=== PATIENT | male | born 1990 | race American Indian/Alaskan Native ===

== ENCOUNTER 2016-04-08 07:53 | Emergency (ER) | payer OTHER ==
--- NOTE | 2016-04-08 11:12 | Emergency Department Report ---
Chief Complaint: Weakness Stated Complaint: FEELING FAINT Time Seen by Provider: 04/08/16 11:07 - HPI History of Present Illness: Patient here complaining of generalized weakness especially to his lower extremities. He said he woke up this morning he feel drained. Denies nausea vomiting or diarrhea. Reports that he is having lower back pain and it 7 out of 10 constant and achy. Patient was diagnosed with MS over a year ago through [facility]. His neurologist is DR Beckwith at [facility]. Patient is supposed to be on medication but he said he has not taken for over a year. Patient reports that he was supposed to go to classes for MS and did not get to go because he cannot get in touch with a person was supposed to schedule him for the class. - ROS Review of Systems: Systems are negative unless stated in HPI above. - Exam Vital Signs: Vital Signs 04/08/16 08:24 Temperature 97.7 F Pulse Rate 92 H Respiratory 17 Rate Blood Pressure 97/52 O2 Sat by Pulse 100 Oximetry Physical Exam: General General: Is a 25-year-old male well-nourished well-developed in no acute distress. CV: S1, S2. Regular rate and rhythm. BP is 97/52. mini-neuro: GCS of 15, alert and oriented 3. Patient able to ambulate but he reports weakness in his lower extremity. No pronator drift. No facial drooping. 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 MSE screening note: Focused history and physical exam performed. Due to findings the following was ordered:see mdm ED Medical Decision Making - Medical Decision Making Medical decision making: Patient seen by provider in triage area. Appropriate protocol activated and patient to main ED to be seen by physician. ED Disposition for MSE Condition: Stable
[2016-04-08 11:29] LABS: Basophils % (Auto) 0.6 % (0.0-1.8); Eosinophils % (Auto) 0.8 % (0.0-4.3); Hemoglobin 14.8 gm/dl (11.8-15.2); Mean Corpuscular HGB Conc 33 % (32-34); Mean Corpuscular Hemoglobin 28 pg (28-32); Mean Corpuscular Volume 86 fl (84-94); Platelet Count 210 K/mm3 (140-440); Red Blood Count 5.22 M/mm3 (3.65-5.03); Red Cell Distribution Width 14.3 % (13.2-15.2)
[2016-04-08 11:43] LABS: Alanine Aminotransferase 10 units/L (7-56); Albumin 4.4 g/dL (3.9-5); Albumin/Globulin Ratio 1.1 %; Alkaline Phosphatase 56 units/L (35-129); BUN/Creatinine Ratio 14.28; Bilirubin,Total 0.7 mg/dL (0.1-1.2); Blood Urea Nitrogen 10 mg/dL (9-20); Calcium 9.5 mg/dL (8.4-10.2); Carbon Dioxide 25 mmol/L (22-30); Chloride 98.9 mmol/L (98-107); Creatine Kinase 136 units/L (55-170); Glucose 90 mg/dL (75-100); Phosphorous 3.7 mg/dL (2.5-4.5); Potassium 4.8 mmol/L (3.6-5.0); Sodium 134 mmol/L (137-145); Total Protein 8.4 g/dL (6.3-8.2)
[2016-04-08 11:55] LABS: Anion Gap 15 mmol/L
[2016-04-08] MEDS ORDERED: MORPHINE IV ONE (20:57)
[2016-04-08] MEDS ORDERED: REGLAN IV ONE (20:57)
[2016-04-08] MEDS ORDERED: NACL 0.9% 1000 ML 1,000 ML IV ONE (20:57)
[2016-04-08] MEDS ORDERED: BENADRYL IV ONE (20:57)
[2016-04-08] MEDS ORDERED: NACL 0.9% 1000 ML 1,000 ML ONE (21:11)
[2016-04-08] MEDS ORDERED: TORADOL IV ONE (21:55)
--- NOTE | 2016-04-08 21:56 | Emergency Department Report ---
HPI - General Chief Complaint: Weakness Time Seen by Provider: 04/08/16 11:07 - HPI HPI: The patient's Down syndrome male presents for evaluation of headache and back pain. The patient reports headache and back pain for the past approximately 12 hours, since awakening this morning, currently 8 out of 10 in severity, aching in quality, constant since onset. He states that his back pain is exacerbated with movement of the lower back. He also complains of generalized weakness since this morning. The patient denies fever, head injury, trauma to the back, neck pain or neck stiffness, vision or hearing changes, smell or taste changes, paresthesias, facial drooping, slurred speech, seizure-like activity, urine or bowel incontinence or retention, or other focal neurological deficit. ED Past Medical Hx - Past Medical History Additional medical history: MS - Surgical History Past Surgical History?: No - Social History Smoking Status: Never Smoker Substance Use Type: None - Medications Home Medications: Home Medications Medication Instructions Recorded Confirmed Last Taken Type Acetaminophen/Codeine [Tylenol #3] 1 tab PO Q6H PRN #10 tab 04/08/16 Unknown Rx ED Review of Systems ROS: Stated complaint: FEELING FAINT Other details as noted in HPI Constitutional: Reports generalized weakness denies: fever ENT: denies: throat or neck pain Respiratory: denies: cough, shortness of breath Cardiovascular: denies: chest pain Endocrine: denies unexplained weight loss or gain Gastrointestinal: denies: abdominal pain, nausea Genitourinary: denies: dysuria Musculoskeletal: reports back pain Skin: denies: rash Neurological: reports headache Hematological/Lymphatic: denies: easy bleeding or easy bruising Psych: denies sadness or hopelessness Physical Exam - Physical Exam Vital Signs: Vital Signs 04/08/16 04/08/16 04/08/16 08:24 19:17 19:34 Temperature 97.7 F Pulse Rate 92 H Respiratory 17 20 Rate Blood Pressure 97/52 120/51 Blood Pressure [Left] O2 Sat by Pulse 100 100 Oximetry 04/08/16 04/08/16 19:41 20:00 Temperature 97.9 F Pulse Rate 61 62 Respiratory 20 12 Rate Blood Pressure 108/56 Blood Pressure 120/51 [Left] O2 Sat by Pulse 100 100 Oximetry Physical Exam: General: well-nourished, well-developed, no acute distress Head: Normocephalic, atraumatic Eyes: normal sclera, EOMI, PERRL ENT: Mucous membranes are pale and dry Neck: trachea midline, neck supple, No neck stiffness, no cervical adenopathy Respiratory: Breath sounds equal bilaterally, no wheezing, rales, or rhonchi Cardio: S1 and S2 present, no murmurs, rubs, gallops, capillary refill is delayed Abdomen: Normoactive bowel sounds, soft abdomen, no rigidity, no guarding or rebound tenderness Chest WALL/Back: No tenderness to palpation of the chest wall, bilateral lower back paraspinal muscle tenderness to palptation present, no midline lumbar tenderness, no sensation or motor deficit in the legs, straight leg raise test negative bilaterally Musc: No pitting edema Skin: No rash Neuro: AOx3, no facial drooping, normal speech, no sensation or motor deficits, no coordination deficit with finger to nose testing, no neuro deficits on exam Psych: Normal affect ED Course Vital Signs 04/08/16 04/08/16 04/08/16 08:24 19:17 19:34 Temperature 97.7 F Pulse Rate 92 H Respiratory 17 20 Rate Blood Pressure 97/52 120/51 Blood Pressure [Left] O2 Sat by Pulse 100 100 Oximetry 04/08/16 04/08/16 19:41 20:00 Temperature 97.9 F Pulse Rate 61 62 Respiratory 20 12 Rate Blood Pressure 108/56 Blood Pressure 120/51 [Left] O2 Sat by Pulse 100 100 Oximetry ED Medical Decision Making - Lab Data Result diagrams: 04/08/16 11:15 04/08/16 11:15 - Medical Decision Making The patient was seen and examined by myself. The patient is placed on a lithographers printer and continuous pulse ox. On initial evaluation, the patient was found to be in no distress. As there are no neuro deficits suggestive of multiple sclerosis flare, or other findings on examination concerning for acute intracranial disease process, and as the patient states that symptoms are consistent with previous headaches, a CAT scan of the head will not be obtained at this time. IV access is established and the patient is given IV Reglan, Benadryl, and IV Toradol for headache and back pain. He is given a 1 L normal saline fluid bolus for treatment of his dehydration. Lab results reveal elevated RBC, and high normal hemoglobin and hematocrit, suggestive of hemoconcentration and dehydration. Lab results otherwise were grossly not concerning. The patient was reevaluated and reported that their symptoms were markedly improved. The patient is stable for discharge with outpatient follow- up. The patient is given follow-up and return instructions. The patient expressed understanding and agreed with the plan. The patient is discharged in stable condition. Critical care attestation.: If time is entered above; I have spent that time in minutes in the direct care of this critically ill patient, excluding procedure time. ED Disposition Clinical Impression: Acute bilateral low back pain without sciatica, Dehydration Acute nonintractable headache Qualifiers: Headache type: unspecified Qualified Code(s): R51 - Headache Disposition: DISCHARGED TO HOME OR SELFCARE Is pt being admited?: No Does the pt Need Aspirin: No Condition: Stable Instructions: Dehydration (ED), Acute Headache (ED), Acute Low Back Pain (ED) Prescriptions: Acetaminophen/Codeine [Tylenol #3] 1 tab PO Q6H PRN #10 tab PRN Reason: Pain Referrals: DR LINUS [Other] - 3-5 Days Forms: Work/School Release Form(ED) Time of Disposition: 21:00
[2016-04-08 23:24] VITALS: BP 105/59
== END 2016-04-08 23:25 | disposition home or self-care (01) ==
LOC: ED 07:53
DX: M54.5 Low back pain (principal); E86.0 Dehydration; R51 Headache
CPT/HCPCS: 36415; 80053; 82330; 82550; 82962; 83735; 84100; 85025; 87040; 96361; 96374; 96375; 99284; J1200; J1885; J2270; J2765; J7030

== ENCOUNTER 2016-10-03 11:43 | Emergency (ER) | payer OTHER ==
[2016-10-03 12:00] VITALS: BP 126/85
[2016-10-03] MEDS ORDERED: TORADOL IM ONE (15:46)
[2016-10-03] MEDS ORDERED: NORCO 5/325 PO ONE (15:46)
[2016-10-03] MEDS ORDERED: FLEXERIL PO ONE (15:46)
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
== END 2016-10-03 18:17 | disposition home or self-care (01) ==
LOC: ED 11:43
DX: R51 Headache (principal); M54.6 Pain in thoracic spine; V49.59XA Passenger injured in collision with other motor vehicles in traffic accident, initial encounter; Y93.9 Activity, unspecified; Y92.9 Unspecified place or not applicable; Y99.9 Unspecified external cause status
CPT/HCPCS: 72072; 96372; 99283; J1885

== ENCOUNTER 2018-07-23 14:29 | Emergency (ER) | payer OTHER ==
[2018-07-23 14:45] VITALS: BP 114/69
[2018-07-23] MEDS ORDERED: NACL 0.9% 500 ML 500 ML ONE (16:35)
[2018-07-23] MEDS ORDERED: TORADOL IM ONE (18:47)
[2018-07-23] MEDS ORDERED: ZOFRAN ODT PO ONE (18:47)
--- NOTE | 2018-07-23 18:52 | Emergency Department Report ---
Minor Respiratory - HPI Chief Complaint: Upper Respiratory Infection Stated Complaint: SINUS Duration: 1-1/2 weeks Pain Location: Nose Severity: moderate Minor Respiratory: Yes Rhinorrhea, Yes Able to Tolerate Fluids, Yes Cough, Yes Sick Contacts, Yes Fever, No Sore Throat, No Ear Pain, No Hemoptysis, No Chest Pain, No Shortness of Breath Other History: This is a 28-year-old -[place] male who presents to the emergency room with upper respiratory symptoms for the past 1-1/2 weeks. Patient reports headache, sneezing, cough, rhinorrhea, and chills. [place]. He is currently taking Zyrtec and Claritin with no improvement of symptoms. He denies nausea, vomiting, diarrhea, abdominal pain, sore throat, and myalgia. ED Review of Systems ROS: Stated complaint: SINUS Other details as noted in HPI Constitutional: chills, fever ENT: congestion. denies: ear pain, throat pain, dental pain, hearing loss Respiratory: cough. denies: shortness of breath, wheezing Cardiovascular: denies: chest pain, palpitations Gastrointestinal: denies: abdominal pain, nausea, diarrhea Musculoskeletal: denies: back pain, joint swelling, arthralgia, myalgia Skin: denies: rash, lesions Neurological: headache. denies: weakness, paresthesias Psychiatric: denies: anxiety, depression ED Past Medical Hx - Past Medical History Additional medical history: MS - Surgical History Past Surgical History?: No - Social History Smoking Status: Never Smoker Substance Use Type: Alcohol - Medications Home Medications: Home Medications Medication Instructions Recorded Confirmed Last Taken Type Acetaminophen/Codeine [Tylenol #3] 1 tab PO Q6H PRN #10 tab 04/08/16 Unknown Rx Ketorolac [Toradol] 10 mg PO Q6H PRN #20 tablet 10/03/16 Unknown Rx methOCARBAMOL [Robaxin TAB] 500 mg PO TID #30 tab 10/03/16 Unknown Rx Amoxicillin/Potassium Clav 1 each PO BID #10 tablet 07/23/18 Unknown Rx [Augmentin 875-125 Tablet] Benzonatate [Tessalon Perles] 100 mg PO Q8HR PRN #30 capsule 07/23/18 Unknown Rx Fluticasone [Flonase] 1 spray NS QDAY #1 bottle 07/23/18 Unknown Rx Minor Respiratory Exam - Exam General: Vital signs noted. No distress. Alert and acting appropriately. HEENT: Yes Pharyngeal Erythema (erythematous posterior pharynx, uvula midline), Yes Moist Mucous Membranes, Yes Rhinorrhea (turbinates mildly congested with purulent discharge), Yes Frontal Tenderness, No Pharyngeal Exudates, No Conjuctival Injection, No Maxillary Tenderness Ear: Neither TM Bulge, Neither TM Erythema, Neither EAC Pain, Neither EAC Discharge Neck: Yes Supple, No Adenopathy Lungs: Yes Good Air Exchange, No Wheezes, No Ronchi, No Stridor, No Cough, No Labored Respirations, No Retractions, No Use of Accessory Muscles, No Other Abnormal Lung Sounds Heart: Yes Regular, No Murmur Abdomen: Yes Normal Bowel Sounds, No Tenderness, No Peritoneal Signs Skin: No Rash, No Edema Neurologic: Alert and oriented, no deficits. Musculoskeletal: Unremarkable. ED Course Vital Signs 07/23/18 14:43 Temperature 100.3 F H Pulse Rate 91 H Respiratory 18 Rate Blood Pressure 114/69 O2 Sat by Pulse 98 Oximetry ED Medical Decision Making - Medical Decision Making Patient examined by me and stable. No distress noted. Temperature slightly elevated. Given Toradol and Zofran for headache. Symptoms are susceptible of acute frontal sinusitis. He is instructed to take Tylenol or ibuprofen for fever control. Drink a lot of liquids. Start flonase, Tessalon Perles, and Augmentin. Discharged home stable. Educated on care for sinusitis. He was given a note to return to work in 2 days. Follow up with Primary Care Provider in 2-3 days. He will return to the emergency room if he does not get better as discussed. Critical care attestation.: If time is entered above; I have spent that time in minutes in the direct care of this critically ill patient, excluding procedure time. ED Disposition Clinical Impression: Sinus pressure, Cough in adult Headache Qualifiers: Headache type: tension-type Headache chronicity pattern: acute headache Intractability: not intractable Qualified Code(s): G44.209 - Tension-type headache, unspecified, not intractable Acute sinusitis Qualifiers: Sinusitis location: frontal Recurrence: non-recurrent Qualified Code(s): J01.10 - Acute frontal sinusitis, unspecified Disposition: TO HOME OR SELFCARE Is pt being admited?: No Does the pt Need Aspirin: No Condition: Stable Instructions: Sinusitis (ED) Additional Instructions: Use warm moist compresses over sinuses. Use ibuprofen or Tylenol for pain. Use nasal saline spray. Avoid taking antihistamines. Follow up with Primary Care Provider if fever, short of breath, chest pain, or symptoms do not improve as discussed. Prescriptions: Amoxicillin/Potassium Clav [Augmentin 875-125 Tablet] 1 each PO BID #10 tablet Fluticasone [Flonase] 1 spray NS QDAY #1 bottle Benzonatate [Tessalon Perles] 100 mg PO Q8HR PRN #30 capsule PRN Reason: Cough Referrals: [facility] [Other] - 3-5 Days [facility] [Provider Group] - 3-5 Days Forms: Work/School Release Form(ED) Time of Disposition: 18:55
== END 2018-07-23 19:22 | disposition home or self-care (01) ==
LOC: ED 14:29
DX: J01.00 Acute maxillary sinusitis, unspecified (principal); J01.10 Acute frontal sinusitis, unspecified
CPT/HCPCS: 96372; 99282; J1885; J7040; Q0162